=== PATIENT | male | born 1980 | race Caucasian/White ===

== ENCOUNTER 2019-02-14 16:26 | Emergency (ER) | payer OTHER ==
--- NOTE | 2019-02-14 18:33 | EDPHYS ---
Physician Documentation [facility] Name: Wisam Tan III Age: 39 yrs Sex: Male : 1980 Arrival Date: 02/14/2019 Time: 16:29 Bed 28 Private MD: ED Physician Carlin Munoz HPI: 02/14 19:11 This 39 yrs old Male presents to ER via Ambulatory with complaints of Neck jr8 Pain, <24hrs Old, Arm Pain. 19:11 The patient or guardian complains of decreased range of motion, pain. The symptoms are jr8 located on the back left side of neck. Onset: The symptoms/episode began/occurred acutely, this morning, today. Context: The problem was sustained at home, The neck injury/problem resulted from from unknown cause. Associated signs and symptoms: The patient has no apparent associated signs or symptoms. The pain does not radiate. Modifying factors: The symptoms are alleviated by nothing. the symptoms are aggravated by movement, pressure. Severity of symptoms: At their worst the symptoms were moderate, in the emergency department the symptoms have improved, mildly. The patient has not experienced similar symptoms in the past. The patient has not recently seen a physician. steady aching pain to back of neck that started this AM without cause. Historical: - Allergies: 16:36 No Known Allergies; aa5 - Home Meds: 18:42 Hydrochlorothiazide Oral [Active]; Hydrocodone-Acetaminophen 5/500 Oral [Active]; rv - PMHx: 16:36 Hypertension; aa5 - PSHx: 16:36 back surgery X2; cervical disc sx; aa5 - Immunization history:: Adult Immunizations unknown. - Social history:: Smoking status: Patient/guardian denies using tobacco. - Ebola Screening: : No symptoms or risks identified at this time. ROS: 19:11 Eyes: Negative for injury, pain, redness, and discharge, ENT: Negative for injury, jr8 pain, and discharge, Cardiovascular: Negative for chest pain, palpitations, and edema, Respiratory: Negative for shortness of breath, cough, wheezing, and pleuritic chest pain, Abdomen/GI: Negative for abdominal pain, nausea, vomiting, diarrhea, and constipation, Back: Negative for injury and pain, MS/Extremity: Negative for injury and deformity, Skin: Negative for injury, rash, and discoloration, Neuro: Negative for headache, weakness, numbness, tingling, and seizure. 19:11 Neck: Positive for pain with movement, pain at rest, tenderness. Exam: 19:11 Eyes: Pupils equal round and reactive to light, extra-ocular motions intact. Lids and jr8 lashes normal. Conjunctiva and sclera are non-icteric and not injected. Cornea within normal limits. Periorbital areas with no swelling, redness, or edema. ENT: Nares patent. No nasal discharge, no septal abnormalities noted. Tympanic membranes are normal and external auditory canals are clear. Oropharynx with no redness, swelling, or masses, exudates, or evidence of obstruction, uvula midline. Mucous membranes moist. Cardiovascular: Regular rate and rhythm with a normal S1 and S2. No gallops, murmurs, or rubs. Normal PMI, no JVD. No pulse deficits. Respiratory: Lungs have equal breath sounds bilaterally, clear to auscultation and percussion. No rales, rhonchi or wheezes noted. No increased work of breathing, no retractions or nasal flaring. Abdomen/GI: Soft, non-tender, with normal bowel sounds. No distension or tympany. No guarding or rebound. No evidence of tenderness throughout. Back: No spinal tenderness. No costovertebral tenderness. Full range of motion. Skin: Warm, dry with normal turgor. Normal color with no rashes, no lesions, and no evidence of cellulitis. MS/ Extremity: Pulses equal, no cyanosis. Neurovascular intact. Full, normal range of motion. Neuro: Awake and alert, GCS 15, oriented to person, place, time, and situation. Cranial nerves II-XII grossly intact. Motor strength 5/5 in all extremities. Sensory grossly intact. Cerebellar exam normal. Normal gait. 19:11 Neck: External neck: tenderness, that is mild, of the left mid cervical area and left trapezius, C-spine: appears grossly normal, Thyroid: appears normal, Trachea: is midline with no obvious abnormalities, ROM/movement: pain, that is mild, with any movement, limited range of motion, is not appreciated, Lymph nodes: no appreciated lymphadenopathy. Vital Signs: 16:36 BP 143 / 88; Pulse 97; Resp 18 S; Temp 98.1(O); Pulse Ox 100% on R/A; Weight 79.38 kg aa5 (R); Height 5 ft. 11 in. (180.34 cm) (R); Pain 10/10; 18:41 BP 143 / 97; Pulse 96; Resp 16; Temp 98; Pulse Ox 100% on R/A; rv 16:36 Body Mass Index 24.41 (79.38 kg, 180.34 cm) aa5 MDM: 18:32 Patient medically screened. jr8 18:32 Data reviewed: vital signs, nurses notes, and as a result, I will discharge patient. jr8 Data interpreted: Pulse oximetry: on room air is 100 %. Interpretation: normal. Counseling: I had a detailed discussion with the patient and/or guardian regarding: the historical points, exam findings, and any diagnostic results supporting the discharge/admit diagnosis, the need for outpatient follow up, a family practitioner, to return to the emergency department if symptoms worsen or persist or if there are any questions or concerns that arise at home. Administered Medications: 18:40 Drug: TORadol - Ketorolac 15 mg Route: IM; Site: left deltoid; rv 18:40 Follow up: Response: Medication administered at discharge. rv Disposition: 19:02 Co-signature as Attending Physician, Carlin Munoz MD Available for consultation at ps1 all times . Disposition: 02/14/19 18:33 Discharged to Home. Impression: Cervicalgia. - Condition is Stable. - Discharge Instructions: Musculoskeletal Pain. - Prescriptions for Ibuprofen 800 mg Oral Tablet - take 1 tablet by ORAL route every 12 hours As needed take with food; 20 tablet. Skelaxin 800 mg Oral Tablet - take 1 tablet by ORAL route every 8 hours As needed; 30 tablet. Medrol (Napoleon) 4 mg Oral Tablets, Dose Pack - take 1 tablet by ORAL route as directed - follow package instructions; 1 packet. - Medication Reconciliation Form, Thank You Letter, Antibiotic Education, Prescription Opioid Use form. - Follow up: Private Physician; When: 5 - 6 days; Reason: Recheck today's complaints, Continuance of care, Re-evaluation by your physician. - Problem is new. - Symptoms have improved. Signatures: Asya Lopez RN RN aa5 Riki Rdz PA PA jr8 Carlin Munoz MD MD ps1 Mathew Goss RN RN rv Corrections: (The following items were deleted from the chart) 18:43 18:33 02/14/2019 18:33 Discharged to Home. Impression: Cervicalgia. Condition is rv Stable. Forms are Medication Reconciliation Form, Thank You Letter, Antibiotic Education, Prescription Opioid Use. Follow up: Private Physician; When: 5 - 6 days; Reason: Recheck today's complaints, Continuance of care, Re-evaluation by your physician. Problem is new. Symptoms have improved. jr8
--- NOTE | 2019-02-14 18:33 | ER ---
Nurse's Notes [facility] Name: Wisam Tan III Age: 39 yrs Sex: Male : 1980 Arrival Date: 02/14/2019 Time: 16:29 Bed 28 Private MD: Diagnosis: Cervicalgia Presentation: 02/14 16:35 Presenting complaint: Patient states: "I woke up with the left side of my neck hurting aa5 and radiating down my left arm". Transition of care: patient was not received from another setting of care. Onset of symptoms was February 14, 2019. Risk Assessment: Do you want to hurt yourself or someone else? Patient reports no desire to harm self or others. Initial Sepsis Screen: Does the patient meet any 2 criteria? No. Patient's initial sepsis screen is negative. Does the patient have a suspected source of infection? No. Patient's initial sepsis screen is negative. Care prior to arrival: None. 16:35 Acuity: MODE 3 aa5 16:35 Method Of Arrival: Ambulatory aa5 Historical: - Allergies: 16:36 No Known Allergies; aa5 - Home Meds: 18:42 Hydrochlorothiazide Oral [Active]; Hydrocodone-Acetaminophen 5/500 Oral [Active]; rv - PMHx: 16:36 Hypertension; aa5 - PSHx: 16:36 back surgery X2; cervical disc sx; aa5 - Immunization history:: Adult Immunizations unknown. - Social history:: Smoking status: Patient/guardian denies using tobacco. - Ebola Screening: : No symptoms or risks identified at this time. Screenin:22 Abuse screen: Denies threats or abuse. Denies injuries from another. Nutritional rv screening: No deficits noted. Tuberculosis screening: No symptoms or risk factors identified. Fall Risk None identified. Assessment: 18:22 General: Appears in no apparent distress. uncomfortable, Behavior is calm, cooperative. rv Pain: Complains of pain in NECK. Neuro: Level of Consciousness is awake, alert, obeys commands, Oriented to person, place, time, situation. Cardiovascular: Patient's skin is warm and dry. Respiratory: Airway is patent. GI: No signs and/or symptoms were reported involving the gastrointestinal system. : No signs and/or symptoms were reported regarding the genitourinary system. EENT: No signs and/or symptoms were reported regarding the EENT system. Derm: Skin is intact. Musculoskeletal: Reports pain in NECK. Vital Signs: 16:36 BP 143 / 88; Pulse 97; Resp 18 S; Temp 98.1(O); Pulse Ox 100% on R/A; Weight 79.38 kg aa5 (R); Height 5 ft. 11 in. (180.34 cm) (R); Pain 10/10; 18:41 BP 143 / 97; Pulse 96; Resp 16; Temp 98; Pulse Ox 100% on R/A; rv 16:36 Body Mass Index 24.41 (79.38 kg, 180.34 cm) aa5 ED Course: 16:29 Patient arrived in ED. rg4 16:35 Arm band placed on. aa5 16:36 Triage completed. aa5 17:36 Mathew Goss, MAGALI is Primary Nurse. rv 18:23 Patient has correct armband on for positive identification. Bed in low position. Call rv light in reach. Side rails up X 1. Pulse ox on. NIBP on. 18:32 Riki Rdz PA is PHCP. jr8 18:32 Carlin Munoz MD is Attending Physician. jr8 18:41 No provider procedures requiring assistance completed. Patient did not have IV access rv during this emergency room visit. Administered Medications: 18:40 Drug: TORadol - Ketorolac 15 mg Route: IM; Site: left deltoid; rv 18:40 Follow up: Response: Medication administered at discharge. rv Outcome: 18:33 Discharge ordered by . jr8 18:42 Discharged to home ambulatory. rv 18:42 Condition: good 18:42 Discharge instructions given to patient, Instructed on discharge instructions, follow up and referral plans. medication usage, Demonstrated understanding of instructions, follow-up care, medications, Prescriptions given X 3. 18:43 Patient left the ED. rv Signatures: Asya Lopez, RN RN aa5 Riki Rdz PA PA jr8 Gisel Ornelas rg4 Mathew Goss RN RN rv
[2019-02-14] MEDS ORDERED: KETOROLAC 30 MG/ML INJ ONE (18:51)
== END 2019-02-14 18:43 | disposition home or self-care (01) ==
LOC: ER 16:26
DX: M54.2 Cervicalgia (principal); I10 Essential (primary) hypertension
CPT/HCPCS: 96372; 99283

== ENCOUNTER 2024-03-15 11:23 | Emergency (ER) | payer OTHER, SELFPAY ==
--- OUTSIDE RECORDS SUMMARY | 2024-03-15 11:25 | XMS REPORT | Continuity of Care Document ---
Author Name Unknown Address [address] [facility] [address] [place] [address] [facility] Address [address] 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 Name Role Phone Carson Ruffin Buzz Primary Care Physician [phone] [facility] Attending Clinician Unavailabl e Mohamud Palomo Attending Clinician [phone] Doctor Unassigned, Juncal Attending Clinician U Carlin Steele DO Attending Clinician [phone] Chip Foster MD Attending Clinician [phone] [facility] Admitting Clinician Unavailabl e Payers Payer Name Policy Type Policy Number Effective Date Expirati on Date Source [place]: BLUE ADVANTAGE (HMO) [id number] 2022 00:00:00 [employer] OUT OF [id number] [facility] [id number] 2018 00:00:00 [facility] Allergies, Adverse Reactions, Alerts Allergy Name Allergy Type Status Severity Reaction(s) Onset Date Inactive Date Treating Clinician Comments Source Latex Propensi ty to adverse reaction s Active Hives 04-05 00:00: 00 [facility] LATEX DRUG INGREDI Active Hives 04-05 00:00: 00 [facility] NO KNOWN ALLERGIE S Drug Class Active [facility] Social History Social Habit Start Date Stop Date Quantity Comments Source Exposure to SARS-CoV-2 (event) Not sure [facility] Sex Assigned At 1980 00:00:00 1980 00:00:00 [facility] Smoking Status Start Date Stop Date Source Unknown if ever smoked [facility] Medications Ordered Medication Name Filled Medication Name Start Date Stop Date Current Medication? Ordering Clinician Indication Dosage Frequency Signature (SIG) Comments Components Source ibuprofen (IBU) tablet 800 mg 04-06 01:30: 00 04-06 00:27 :00 No 800mg 800 mg, Oral, ONCE, 1 dose, Thu04/05/21 at 2030, DUSTIN [facility] HYDROcodone -acetaminop hen (NORCO 5) 5-325 mg tablet 2 tablet 04-06 01:30: 00 04-06 00:27 :00 No 2{tbl} 2 tablet, Oral, ONCE, 1 dose, Thu04/05/21 at 2030, [facility] iopamidol (ISOVUE 370-500 mL) injection 120 mL 04-05 23:28: 00 04-05 23:28 :00 No [id number] 120mL 120 mL, Intravenou s, ONCE, 1 dose, Thu04/05/21 at 1845, Routine [facility] naproxen sodium (ANAPROX DS) 550 mg tablet 10-09 00:00: 00 Yes [id number] 550mg Take 1 tablet by mouth 2 (two) times daily with meals. [facility] methylPREDN ISolone (MEDROL, LILLIAN,) 4 mg tablets 3- 00:00: 00 Yes [id number] Take by mouth SEE-INSTRU CTIONS. follow package directions [facility] predniSONE 20 mg tablet 2-12 00:00: 00 Yes [id number] 20mg Take 1 tablet by mouth daily. [facility] duloxetine 20 mg capsule,del ayed release Take 1 capsule every day by oral route for 30 days. duloxetine 20 mg capsule,del ayed release Take 1 capsule every day by oral route for 30 days. No 1capsul e(s) Q1D duloxetine 20 mg capsule,de layed release Take 1 capsule every day by oral route for 30 days. [facility] lisinopril 10 mg tablet lisinopril 10 mg tablet No lisinopril 10 mg tablet [facility] Voltaren 1 % topical gel APPLY 2 GRAMS TO THE AFFECTED AREA(S) BY TOPICAL ROUTE 4 TIMES PER DAY Voltaren 1 % topical gel APPLY 2 GRAMS TO THE AFFECTED AREA(S) BY TOPICAL ROUTE 4 TIMES PER DAY No Voltaren 1 % topical gel APPLY 2 GRAMS TO THE AFFECTED AREA(S) BY TOPICAL ROUTE 4 TIMES PER DAY [facility] Adderall 30 mg tablet Take 2 tablets every day by oral route as needed for 28 days. Adderall 30 mg tablet Take 2 tablets every day by oral route as needed for 28 days. No 2 Q1D Adderall 30 mg tablet Take 2 tablets every day by oral route as needed for 28 days. [facility] buprenorphi ne 8 mg-naloxone 2 mg sublingual film buprenorphi ne 8 mg-naloxone 2 mg sublingual film No buprenorph ine 8 mg-naloxon e 2 mg sublingual film [facility] Vital Signs Vital Name Observation Time Observation Value Comments S ource BP Diastolic 2022-12-01 00:00:00 98 mm[Hg] [facility] Height 2022-12-01 00:00:00 71 [in_i] [facility] BMI (Body Mass Index) 2022-12-01 00:00:00 26.4 kg/m2 [facility] BP Systolic 2022-12-01 00:00:00 130 mm[Hg] [facility] Body Weight 2022-12-01 00:00:00 3024 [oz_av] [facility] Systolic blood pressure 2021-04-06 00:00:00 129 mm[Hg] [facility] Diastolic blood pressure 2021-04-06 00:00:00 94 mm[Hg] [facility] Heart rate 2021-04-06 00:00:00 76 /min [facility] Respiratory rate 2021-04-05 23:00:00 18 /min [facility] Oxygen saturation in Arterial blood by Pulse oximetry 2021-04-05 23:00:00 100 /min [facility] Body temperature 2021-04-05 21:33:00 37.06 [facility] Body height 2021-04-05 21:33:00 180.3 cm [facility] Body weight 2021-04-05 21:33:00 82.555 kg [facility] BMI 2021-04-05 21:33:00 25.38 kg/m2 [facility] Procedures Procedure Date / Time Performed Performing Clinicia n Source CT ABDOMEN PELVIS W CONTRAST 2021-04-05 23:35:01 Mohamud Amaya [facility] BASIC METABOLIC PANEL (NA, K, CL, CO2, GLUCOSE, BUN, CREATININE, CA) 2021-04-05 22:34:00 Mohamud Amaya [facility] CBC WITH DIFF 2021-04-05 22:34:00 Mohamud Amaya [facility] NOTICE OF PRIVACY PRACTICES 2021-04-05 21:24:01 Doctor Unassigned, Juncal [facility] CONSENT/REFUSAL FOR DIAGNOSIS AND TREATMENT 2021-04-05 21:23:49 Doctor Unassigned, Juncal [facility] Plan of Care Planned Activity Planned Date Details Comments Source Diagnostic Test Pending 2022-12-01 00:00:00 Vasopressin [Mass/volume] in Serum or Plasma [code = 3126-0] [facility] Diagnostic Test Pending 2022-12-01 00:00:00 Glucose [Mass/volume] in Cerebral spinal fluid [code = 2342-4] [facility] Encounters Start Date/Time End Date/Time Encounter Type Admission Type Attending Clinicians Care Facility Care Department Encounter ID Source 2022-12-18 00:00:00 2022-12-18 00:00:00 Outpatient [facility] PRIV PRIV [id number] [facility] 2022-12-03 00:00:00 2022-12-03 00:00:00 Outpatient [facility] PRIV PRIV [id number] [facility] 2022-12-01 00:00:00 2022-12-01 00:00:00 Outpatient [facility] PRIV PRIV [id number] [facility] 2022-12-01 00:00:00 2022-12-01 00:00:00 Outpatient [facility] [id number] [facility] 2022-12-01 00:00:00 2022-12-01 00:00:00 Torin Gonzalez, DO: [id number] [facility] [address], [place] [address] , Ph. Replaced by [facility] - [facility] and [id number] [facility] 2022-11-30 00:00:00 2022-11-30 00:00:00 Outpatient [facility] [id number] [facility] 2021-04-05 16:34:00 2021-04-05 19:34:00 Emergency Mohamud Amaya [facility] [id number] [facility] 2021-04-05 16:24:00 2021-04-05 16:24:00 Emergency X [facility] ERT [id number] [facility] 2021-04-05 00:00:00 2021-04-05 00:00:00 Orders Only Doctor Unassigned, Juncal [facility] [id number] [facility] 2019-10-10 11:00:54 2019-10-10 13:14:00 Emergency Carlin Munoz [facility] [id number] 2019-10-10 10:53:00 2019-10-10 10:53:00 Emergency X [facility] ERT [id number] [facility] 2019-10-10 00:00:00 2019-10-10 00:00:00 Orders Only Doctor Unassigned, Juncal [facility] [id number] 2019-09-21 09:23:11 2019-09-21 11:21:00 Emergency Chip Foster [facility] [id number] Results Test Description Test Time Test Comments Results Result Co mments Source [facility] WITH [id number] 22:42:06* Test Item Value Reference Range Interpretation Comme nts WBC (test code = 6690-2) See_Comment [Automated messa ge] The system which generated this result transmitted reference range: 4.20 - 10.70 10*3/?L. The reference range was not used to interpret this result as normal/abnormal. RBC (test code = 789-8) See_Comment [Automated messa ge] The system which generated this result transmitted reference range: 4.26 - 5.52 10*6/?L. The reference range was not used to interpret this result as normal/abnormal. HGB (test code = 718-7) 13.9 g/dL 12.2-16.4 HCT (test code = 4544-3) 42.0 % 38.4-49.3 MCV (test code = 787-2) 83.2 fL 81.7-95.6 MCH (test code = 785-6) 27.5 pg 26.1-32.7 MCHC (test code = 786-4) 33.1 g/dL 31.2-35.0 RDW-SD (test code = 18085-3) 35.3 fL 38.5-51.6 L RDW-CV (test code = 788-0) 11.8 % 12.1-15.4 L PLT (test code = 777-3) See_Comment [Automated [place] ge] The system which generated this result transmitted reference range: 150 - 328 10*3/?L. The reference range was not used to interpret this result as normal/abnormal. MPV (test code = 99800-3) 9.4 fL 9.8-13.0 L NRBC/100 WBC (test code = 8233124040) See_Comment [Automated me ssage] The system which generated this result transmitted reference range: 0.0 - 10.0 /100 WBCs. The reference range was not used to interpret this result as normal/abnormal. NRBC x10^3 (test code = 6013606290) <0.01 See_Comment [Automated messa ge] The system which generated this result transmitted reference range: 10*3/?L. The reference range was not used to interpret this result as normal/abnormal. GRAN MAT (NEUT) % (test code = 770-8) 64.9 % IMM GRAN % (test code = 9532191109) 0.40 % LYMPH % (test code = 736-9) 25.8 % MONO % (test code = 5905-5) 6.0 % EOS % (test code = 713-8) 2.2 % BASO % (test code = 706-2) 0.7 % GRAN MAT x10^3(ANC) (test code = 2676724104) 4.83 10*3/uL 1.99-6.95 IMM GRAN x10^3 (test code = 4484785967) 0.03 10*3/uL 0.00-0.06 LYMPH x10^3 (test code = 731-0) 1.92 10*3/uL 1.09-3.23 MONO x10^3 (test code = 742-7) 0.45 10*3/uL 0.36-1.02 EOS x10^3 (test code = 711-2) 0.16 10*3/uL 0.06-0.53 BASO x10^3 (test code = 704-7) 0.05 10*3/uL 0.01-0.09 Lab Interpretation (test code = 85723-0) Abnormal [facility]
[2024-03-15] MEDS ORDERED: ACETAMINOPHEN 500 MG TAB ONE (12:00)
--- NOTE | 2024-03-15 13:14 | RAD REPORT ---
EXAM DESCRIPTION: CT - CTHCSPWOC - 03/15/2024 12:59 pm CLINICAL HISTORY: Trauma, head and neck injury. NECK PAIN COMPARISON: No comparisons TECHNIQUE: Axial 5 mm thick images of the head were obtained. Axial 2 mm thick images of the cervical spine were obtained with sagittal and coronal reconstruction images generated and reviewed. All CT scans are performed using dose optimization technique as appropriate and may include automated exposure control or mA/KV adjustment according to patient size. FINDINGS: CT HEAD WITHOUT CONTRAST: No acute hemorrhage, hydrocephalus or extra-axial collection is identified.No areas of brain edema or midline shift. 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 The paranasal sinuses and mastoids are clear.The calvarium is intact. CT CERVICAL SPINE WITHOUT CONTRAST: No fracture or subluxation.No prevertebral soft tissues swelling is identified. Status post C5-6 ACDF . IMPRESSION: No acute intracranial or cervical spine findings.
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
[2024-03-16 02:24] VITALS: TEMP 99.2
[2024-03-16 02:33] VITALS: O2SAT 100
[2024-03-16 02:37] VITALS: BP 122/89
== END 2024-03-15 13:53 | disposition home or self-care (01) ==
LOC: ER 11:23
DX: S16.1XXA Strain of muscle, fascia and tendon at neck level, initial encounter (principal); S00.81XA Abrasion of other part of head, initial encounter; V59.40XA Driver of pick-up truck or van injured in collision with unspecified motor vehicles in traffic accident, initial encounter
CPT/HCPCS: 70450; 72125; 99284